=== PATIENT | female | born 1960 | race American Indian/Alaskan Native ===

== ENCOUNTER 2017-07-27 16:35 | Inpatient (IN) | payer MEDICAID ==
--- NOTE | 2017-07-27 16:42 | History and Physical Report ---
History of Present Illness Chief complaint: I cant breathe, and im swelling up History of present illness: 56 YO Female with Obesity, Systolic CHF, HTN, HLD, Breast Cancer S/P Mastectomy admitted directly to telemetry at the request of Dr. Boyd. Pt was seen and evaluated in tube winder hand's office and found to have CHF Decompensation. Pt sent to [facility] for admission. Pt seen and evaluated upon arrival. Pt states that she has experienced bilateral lower extremity edema, shortness of breath, dypsnea on exertion, orthopnea, PND and decreased exercise toleerance over the past week with worsening symptoms over the past 3 days. Pt denies fever, chills , CP, Palpitations, NVD, Productive cough, BRBPR, Unintentional weight loss, night sweats. Pt denies medication noncompliance, but does not weigh herself daily, or quantify sodium intake. Past History Past Medical History: cancer, heart failure, hypertension, hyperlipidemia Past Surgical History: mastectomy Social history: single. denies: smoking, alcohol abuse, prescription drug abuse Family history: no significant family history (reviewed) Medications and Allergies Allergies Allergy/AdvReac Type Severity Reaction Status Date / Time No Known Allergies Allergy Verified 03/08/15 07:37 Home Medications Medication Instructions Recorded Confirmed Last Taken Type Aspirin [Aspirin BABY CHEW TAB] 81 mg PO QDAY 03/08/15 03/08/15 Unknown History Ferrous Sulfate [Feosol 325 MG tab] 325 mg PO BID 03/08/15 03/08/15 Unknown History Fluticasone [Flonase] 1 spray NS QDAY 03/08/15 03/08/15 Unknown History HYDROcodone/APAP 10-325 [[place] 1 each PO Q6HR PRN 03/08/15 03/08/15 Unknown History 10-325 mg TAB] Potassium Chloride [K-Dur] 20 meq PO QDAY 03/08/15 03/08/15 Unknown History Simvastatin [Zocor TAB] 20 mg PO QHS 03/08/15 03/08/15 Unknown History Carvedilol [Coreg] 3.125 mg PO BID #60 tablet 03/11/15 Unknown Rx Furosemide [Lasix TAB] 20 mg PO QDAY #30 tablet 03/11/15 Unknown Rx Ciprofloxacin HCl [Ciprofloxacin 500 mg PO Q12H #20 tab 11/05/15 Unknown Rx TAB] Sulfamethoxazole/Trimethoprim 1 each PO BID #20 tablet 11/05/15 Unknown Rx [Bactrim DS TAB] Review of Systems Constitutional: no weight loss, no weight gain, no fever, no chills Ears, nose, mouth and throat: no ear pain, no ear discharge, no tinnitis, no decreased hearing, no nose pain, no nasal congestion Breasts: no change in shape, no swelling, no mass Cardiovascular: orthopnea, edema, shortness of breath, dyspnea on exertion, paroxysmal nocturnal dyspnea, leg edema, decreased exercise tolerance, no chest pain Respiratory: no cough, no cough with sputum, no excessive sputum, no hemoptysis Gastrointestinal: no nausea, no vomiting, no diarrhea, no constipation, no change in bowel habits Genitourinary Female: no pelvic pain, no flank pain, no menorrhagia, no dysuria , no urinary frequency, no urgency Rectal: no pain, no incontinence, no bleeding Musculoskeletal: no neck stiffness, no neck pain, no shooting arm pain, no arm numbness/tingling, no low back pain, no shooting leg pain Integumentary: no rash, no pruritis, no redness, no sores, no wounds Neurological: no transient paralysis, no paralysis, no weakness, no parathesias , no numbness, no tingling, no seizures Psychiatric: no anxiety, no memory loss, no change in sleep habits, no sleep disturbances, no insomnia, no hypersomnia Endocrine: no cold intolerance, no heat intolerance, no polyphagia, no excessive thirst, no polydipsia, no polyuria, no nocturia Hematologic/Lymphatic: no easy bruising, no easy bleeding, no lymphadenopathy, no lymphedema Allergic/Immunologic: no urticaria, no allergic rhinitis, no persistent infections, no anaphylaxis, no angioedema Exam - Constitutional General appearance: Present: mild distress - EENT Eyes: Present: PERRL ENT: hearing intact, clear oral mucosa - Neck Neck: Present: supple, normal ROM - Respiratory Respiratory effort: labored Respiratory: bilateral: diminished, rhonchi - Cardiovascular Heart Sounds: Present: S1 & S2. Absent: rub, click - Extremities Extremities: pulses symmetrical, No edema Extremity abnormal: edema Peripheral Pulses: within normal limits - Abdominal General gastrointestinal: Present: soft, non-tender, non-distended, normal bowel sounds Female genitourinary: Present: normal - Integumentary Integumentary: Present: clear, warm, dry - Musculoskeletal Musculoskeletal: generalized weakness - Psychiatric Psychiatric: appropriate mood/affect, intact judgment & insight - Neurologic Neurologic: CNII-XII intact, moves all extremities Assessment and Plan - Patient Problems (1) CHF exacerbation Current Visit: No Status: Acute Plan to address problem: Admit to telemetry, Strict I/O, Afterload reduction, monitor uop q shift, cardiology consulted, low sodium diet, daily weight, BNP, diuresis, supplemental oxygen, further testing as per cardiology team. (2) Acute respiratory failure Current Visit: Yes Status: Acute Qualifiers: Respiratory failure complication: hypoxia Qualified Code(s): J96.01 - Acute respiratory failure with hypoxia Plan to address problem: Supplemental oxygen, nebulizer therapy, Chest X ray, NIPPV as clinically indicated, diuresis, treat CHF, (3) HTN (hypertension) Current Visit: Yes Status: Acute Qualifiers: Hypertension type: essential hypertension Qualified Code(s): I10 - Essential (primary) hypertension Plan to address problem: monitor BP q shift, supportive care, (4) HLD (hyperlipidemia) Current Visit: Yes Status: Acute Qualifiers: Hyperlipidemia type: mixed hyperlipidemia Qualified Code(s): E78.2 - Mixed hyperlipidemia Plan to address problem: low cholesterol diet, increased physical activity, lipid panel, statin therapy (5) Obesity (BMI 35.0-39.9 without comorbidity) Current Visit: Yes Status: Acute Plan to address problem: Balanced diet, increased physical activity at discharge (6) DVT prophylaxis Current Visit: Yes Status: Acute
[2017-07-27] MEDS ORDERED: SODIUM CHLORIDE FLUSH SYRINGE 10 ML IV PRN (16:44)
[2017-07-27] MEDS ORDERED: PROVENTIL IH PRN (16:44)
[2017-07-27 20:56] LABS: Free T4 (Free Thyroxine) 1.28 ng/dL (0.76-1.46)
[2017-07-27] MEDS: COREG PO SCH (22:00)
[2017-07-27] MEDS ORDERED: NON-FORMULARY (Simvastatin 20 MG) PO SCH (22:00)
[2017-07-27] MEDS: HYDROMET PO PRN (22:11)
[2017-07-27] MEDS: PRAVACHOL PO SCH (22:11)
[2017-07-27] MEDS: FEOSOL PO SCH (22:11)
[2017-07-27] MEDS: LASIX IV SCH (22:12)
[2017-07-27] MEDS: SODIUM CHLORIDE FLUSH SYRINGE 10 ML IV SCH (22:17)
--- NOTE | 2017-07-27 23:26 | XRay Report ---
FINAL REPORT PROCEDURE: XR CHEST 1V AP TECHNIQUE: Chest radiograph anteroposterior view. CPT 92286 HISTORY: dypsnea COMPARISON: No prior studies are available for comparison. FINDINGS: Limited study due to suboptimal positioning. Patient is rotated to the left. There is moderate degree elevation of left hemidiaphragm. Moderate cardiomegaly is identified. No obvious pulmonary infiltrates are identified. Pleural spaces are clear. A right-sided catheter is noted terminating at the level of superior vena cava. IMPRESSION: Moderate degree cardiomegaly. No obvious acute pulmonary process..
[2017-07-28] MEDS: ZOFRAN IV PRN (01:09)
[2017-07-28] MEDS: LASIX IV SCH ×2 (05:38→18:42)
[2017-07-28 07:00] LABS: Basophils % (Auto) 0.8 % (0.0-1.8); Eosinophils # (Auto) 0.1 K/mm3 (0.0-0.4); Hemoglobin 13.3 gm/dl (10.1-14.3); Lymphocytes # (Auto) 0.7 K/mm3 (1.2-5.4); Lymphocytes % (Auto) 20.9 % (13.4-35.0); Mean Corpuscular HGB Conc 32 % (30-34); Mean Corpuscular Hemoglobin 33 pg (28-32); Mean Corpuscular Volume 105 fl (79-97); Monocytes # (Auto) 0.4 K/mm3 (0.0-0.8); Monocytes % (Auto) 11.4 % (0.0-7.3); Platelet Count 185 K/mm3 (140-440); Red Cell Distribution Width 14.6 % (13.2-15.2)
[2017-07-28 07:07] LABS: INR 1.55 (0.87-1.13)
[2017-07-28 07:36] LABS: Alanine Aminotransferase 11 units/L (7-56); Albumin 3.5 g/dL (3.9-5); BUN/Creatinine Ratio 16; Blood Urea Nitrogen 13 mg/dL (7-17); Calcium 8.1 mg/dL (8.4-10.2); Hemolysis Index 5
[2017-07-28] MEDS: TYLENOL PO PRN (07:51)
[2017-07-28] MEDS: BABY ASPIRIN PO SCH (10:09)
[2017-07-28] MEDS: FEOSOL PO SCH ×2 (10:09→21:58)
[2017-07-28] MEDS: COREG PO SCH ×2 (10:09→21:59)
[2017-07-28] MEDS: SODIUM CHLORIDE FLUSH SYRINGE 10 ML IV SCH ×2 (10:13→21:59)
[2017-07-28] MEDS: FLONASE NS SCH (10:13)
[2017-07-28] MEDS: K-DUR PO SCH (10:14)
--- NOTE | 2017-07-28 11:40 | Consultation ---
History of Present Illness Consult date: 07/28/17 Requesting physician: RIO ATKINS Consult reason: congestive heart failure History of present illness: The pt is a 56 YO female with a past medical history significant for metastatic breast CA (followed by Dr. العراقي) s/p left mastectomy, NICMP, heart failure , PE (diagnosed 06/2017), anticoagulated with Xarelto, cardiac arrest with torsades de pointes. She is followed in our office by Dr. Boyd. She presented to our office yesterday with c/o increasing SOB, BLE swelling and coughing for the past several weeks. She was found to be in decompensated HF and was referred to [facility] for direct admission for further eval/management. On evaluation, she still c/o SOB and BLE swelling. She also c/o decreased appetite and early satiety. She denies any chest pain, palpitations, n/v, diaphoresis, dizziness or syncope. LHC done 06/2011 showed normal coronaries, EF 20%. Echo done 06/26/2017 showed EF 20-25%, mild MR, mild-mod TR, LA mod dilated. Past History Past Medical History: cancer, heart failure, hypertension, hyperlipidemia Past Surgical History: mastectomy Social history: single. denies: smoking, alcohol abuse, prescription drug abuse Family history: no significant family history (reviewed) Medications and Allergies Allergies Allergy/AdvReac Type Severity Reaction Status Date / Time No Known Allergies Allergy Verified 03/08/15 07:37 Home Medications Medication Instructions Recorded Confirmed Last Taken Type Aspirin [Aspirin BABY CHEW TAB] 81 mg PO QDAY 03/08/15 03/08/15 Unknown History Ferrous Sulfate [Feosol 325 MG tab] 325 mg PO BID 03/08/15 03/08/15 Unknown History Fluticasone [Flonase] 1 spray NS QDAY 03/08/15 03/08/15 Unknown History HYDROcodone/APAP 10-325 [[place] 1 each PO Q6HR PRN 03/08/15 03/08/15 Unknown History 10-325 mg TAB] Potassium Chloride [K-Dur] 20 meq PO QDAY 03/08/15 03/08/15 Unknown History Simvastatin [Zocor TAB] 20 mg PO QHS 03/08/15 03/08/15 Unknown History Carvedilol [Coreg] 3.125 mg PO BID #60 tablet 03/11/15 Unknown Rx Furosemide [Lasix TAB] 20 mg PO QDAY #30 tablet 03/11/15 Unknown Rx Ciprofloxacin HCl [Ciprofloxacin 500 mg PO Q12H #20 tab 11/05/15 Unknown Rx TAB] Sulfamethoxazole/Trimethoprim 1 each PO BID #20 tablet 11/05/15 Unknown Rx [Bactrim DS TAB] Active Meds: Active Medications Acetaminophen (Tylenol) 650 mg PO Q4H PRN PRN Reason: Pain MILD(1-3)/Fever >100.5/VILLARREAL Last Admin: 07/28/17 07:51 Dose: 650 mg Acetaminophen/Hydrocodone Bitart ([place] 10/325) 1 each PO Q6HR PRN PRN Reason: Pain Albuterol (Proventil) 2.5 mg IH Q4HRT PRN PRN Reason: Shortness Of Breath Aspirin (Baby Aspirin) 81 mg PO QDAY [facility] Last Admin: 07/28/17 10:09 Dose: 81 mg Carvedilol (Coreg) 3.125 mg PO BID [facility] Last Admin: 07/28/17 10:09 Dose: 3.125 mg Ferrous Sulfate (Feosol) 325 mg PO BID [facility] Last Admin: 07/28/17 10:09 Dose: 325 mg Fluticasone Propionate (Flonase) 50 mcg NS QDAY [facility] Last Admin: 07/28/17 10:13 Dose: 50 mcg Furosemide (Lasix) 20 mg IV BID@0600,1800 [facility] Last Admin: 07/28/17 05:38 Dose: 20 mg Hydrocodone Bit/Homatropine Methylb (Hydromet) 10 ml PO Q6H PRN PRN Reason: Cough Last Admin: 07/27/17 22:11 Dose: 10 ml Ondansetron HCl (Zofran) 4 mg IV Q8H PRN PRN Reason: Nausea And Vomiting Last Admin: 07/28/17 01:09 Dose: 4 mg Potassium Chloride (K-Dur) 20 meq PO QDAY [facility] Last Admin: 07/28/17 10:14 Dose: 20 meq Pravastatin Sodium (Pravachol) 40 mg PO QHS [facility] Last Admin: 07/27/17 22:11 Dose: 40 mg Sodium Chloride (Sodium Chloride Flush Syringe 10 Ml) 10 ml IV BID [facility] Last Admin: 07/28/17 10:13 Dose: 10 ml Sodium Chloride (Sodium Chloride Flush Syringe 10 Ml) 10 ml IV PRN PRN PRN Reason: LINE FLUSH Review of Systems Constitutional: no fever, no chills, no sweats Ears, nose, mouth and throat: no ear pain, no nose pain, no sinus pressure, no sinus pain Cardiovascular: orthopnea, edema, shortness of breath, dyspnea on exertion, paroxysmal nocturnal dyspnea, leg edema, decreased exercise tolerance, no chest pain, no palpitations, no rapid/irregular heart beat, no syncope, no lightheadedness Respiratory: cough, shortness of breath, dyspnea on exertion, no cough with sputum, no congestion, no wheezing, no pain on inspiration Gastrointestinal: early satiety, no abdominal pain, no nausea, no vomiting, no diarrhea, no constipation, no change in bowel habits Genitourinary Female: no pelvic pain, no flank pain, no dysuria, no urinary frequency Musculoskeletal: no neck stiffness, no neck pain, no shooting arm pain, no arm numbness/tingling, no low back pain, no shooting leg pain, no leg numbness/ tingling Integumentary: no rash, no pruritis, no redness, no sores, no wounds Neurological: no head injury, no paralysis, no weakness, no parathesias, no numbness, no tingling, no seizures, no syncope Psychiatric: no anxiety Endocrine: no cold intolerance, no heat intolerance Hematologic/Lymphatic: no easy bruising, no easy bleeding, no lymphadenopathy Allergic/Immunologic: no urticaria, no wheezing, no persistent infections Physical Examination Vital Signs Temp Pulse Resp BP Pulse Ox 99.2 F 112 H 20 103/78 98 07/27/17 20:25 07/27/17 20:25 07/27/17 20:25 07/27/17 20:25 07/27/17 20:25 General appearance: no acute distress HEENT: Positive: PERRL, Normocephaly, Mucus Membranes Moist Neck: Positive: neck supple, trachea midline Cardiac: Positive: Reg Rate and Rhythm, S1/S2, Systolic Murmur Lungs: Positive: Decreased Breath Sounds Neuro: Positive: Grossly Intact, Cranial Nerve 2-12 Intact Abdomen: Positive: Soft. Negative: Tender Skin: Positive: Clear. Negative: Rash, Wound Musculoskeletal: No Pain, Normal Range of Motion Extremities: Present: +1 Edema (BLE) Results 07/28/17 06:30 07/28/17 06:30 Cardiac Enzymes 07/28/17 Range/Units 06:30 AST 12 (5-40) units/L Coagulation 07/28/17 Range/Units 06:30 PT 19.5 H (12.2-14.9) Sec. INR 1.55 H (0.87-1.13) CBC 07/28/17 Range/Units 06:30 WBC 3.4 L (4.5-11.0) K/mm3 RBC 4.00 (3.65-5.03) M/mm3 Hgb 13.3 (10.1-14.3) gm/dl Hct 42.0 (30.3-42.9) % Plt Count 185 (140-440) K/mm3 Lymph # 0.7 L (1.2-5.4) K/mm3 [place] # 0.4 (0.0-0.8) K/mm3 Eos # 0.1 (0.0-0.4) K/mm3 Baso # 0.0 (0.0-0.1) K/mm3 Comprehensive Metabolic Panel 07/28/17 Range/Units 06:30 Sodium 142 (137-145) mmol/L Potassium 4.2 (3.6-5.0) mmol/L Chloride 101.1 (98-107) mmol/L Carbon Dioxide 28 (22-30) mmol/L BUN 13 (7-17) mg/dL Creatinine 0.8 (0.7-1.2) mg/dL Glucose 129 H (65-100) mg/dL Calcium 8.1 L (8.4-10.2) mg/dL AST 12 (5-40) units/L ALT 11 (7-56) units/L Alkaline Phosphatase 57 (35-129) units/L Total Protein 6.9 (6.3-8.2) g/dL Albumin 3.5 L (3.9-5) g/dL - Imaging and Cardiology Echo: report reviewed (06/26/2017 showed EF 20-25%, mild MR, mild-mod TR, LA mod dilated) Cardiac cath: report reviewed (06/2011 showed normal coronaries, EF 20%) EKG: pending Assessment and Plan Assessment: Acute on chronic systolic heart failure NICMP - EF 20-25% Metastatic breast CA (followed by Dr. العراقي) s/p left mastectomy NICMP H/o PE (diagnosed 06/2017), anticoagulated with Xarelto H/o cardiac arrest with torsades de pointes Plan: Obtain ECG. Increase IV lasix to 40mg BID. Resume home Xarelto, 20mg PO daily. Agree with all other present cardiac regimen. Home lisinopril held in setting of borderline hypotension. Pt chronically declines AICD. Assessment and plan reviewed with pt at bedside. The patient has been seen in conjunction with Dr. DISHA Allen who agrees with the assessment and plan of care.
--- NOTE | 2017-07-28 16:31 | Progress Note ---
Assessment and Plan Assessment and plan: 56 YO Female with Obesity, Systolic CHF, HTN, HLD, Breast Cancer S/P Mastectomy admitted directly to telemetry at the request of Dr. Boyd. Pt was seen and evaluated in inspector and clipper's office and found to have CHF Decompensation. Pt sent to [facility] for admission. Pt seen and evaluated upon arrival. Pt states that she has experienced bilateral lower extremity edema, shortness of breath, dypsnea on exertion, orthopnea, PND and decreased exercise toleerance over the past week with worsening symptoms over the past 3 days. Pt denies fever, chills , CP, Palpitations, NVD, Productive cough, BRBPR, Unintentional weight loss, night sweats. Pt denies medication noncompliance, but does not weigh herself daily, or quantify sodium intake. (1) Acute systolic CHF exacerbation * Continue Strict I/O, Afterload reduction, monitor uop q shift, cardiology consulted, low sodium diet, daily weight, BNP, supplemental oxygen, further testing as per cardiology team. * Lasix IV 40mg BID (2) NICMP EF 20-25%/Cardiac arrest with torsade de pointes * CARDIOLOGY FOLLOWING, PATIENT HAS CHRONICALLY DECLINED AICD (3)Acute respiratory failure * Supplemental oxygen, nebulizer therapy, Chest X ray, NIPPV as clinically indicated, diuresis, treat CHF, (4) HTN (hypertension) * monitor BP q shift, supportive care, (5) HX of metastatic Breast CA s.p Left mastectomy * follows with Dr العراقي (6) HLD (hyperlipidemia) * low cholesterol diet, increased physical activity, lipid panel, statin therapy (5) Obesity (BMI 35.0-39.9 without comorbidity) * Balanced diet, increased physical activity at discharge (6) DVT prophylaxis CHRONICALLY ON XERALTO DUE TO HX OF PE P History Interval history: Patient seen and examine today, showing some improvement, still with orthopnea. Hospitalist Physical - Physical exam Narrative exam: VITAL SIGNS: Reviewed. GENERAL: The patient appeared well nourished and normally developed. Vital signs as documented. HEAD: No signs of head trauma. EYES: Pupils are equal. Extraocular motions intact. EARS: Hearing grossly intact. MOUTH: Oropharynx is normal. NECK: No adenopathy, no JVD. CHEST: Chest with clear breath sounds bilaterally. No wheezes, rales, or rhonchi. CARDIAC: Regular rate and rhythm. S1 and S2, without murmurs, gallops, or rubs. VASCULAR: +1 Edema. Peripheral pulses normal and equal in all extremities. ABDOMEN: Soft, without detectable tenderness. No sign of distention. No rebound or guarding, and no masses palpated. Bowel Sounds normal. MUSCULOSKELETAL: Good range of motion of all major joints. Extremities without clubbing, cyanosis.+1 edema. NEUROLOGIC EXAM: Alert and oriented x 3. No focal sensory or strength deficits. Speech normal. Follows commands. PSYCHIATRIC: Mood normal. SKIN: left chest wall deformity from mastectomy - Constitutional Vitals: Temp Pulse Resp BP Pulse Ox 98.2 F 106 H 18 90/61 96 07/28/17 04:53 07/28/17 10:00 07/28/17 10:00 07/28/17 04:53 07/28/17 04:53 General appearance: Present: no acute distress Results - Labs CBC & Chem 7: 07/28/17 06:30 07/28/17 06:30 Labs: Laboratory Last Values WBC 3.4 K/mm3 (4.5-11.0) L 07/28/17 06:30 RBC 4.00 M/mm3 (3.65-5.03) 07/28/17 06:30 Hgb 13.3 gm/dl (10.1-14.3) 07/28/17 06:30 Hct 42.0 % (30.3-42.9) 07/28/17 06:30 MCV 105 fl (79-97) H 07/28/17 06:30 MCH 33 pg (28-32) H 07/28/17 06:30 MCHC 32 % (30-34) 07/28/17 06:30 RDW 14.6 % (13.2-15.2) 07/28/17 06:30 Plt Count 185 K/mm3 (140-440) 07/28/17 06:30 Lymph % (Auto) 20.9 % (13.4-35.0) 07/28/17 06:30 [place] % (Auto) 11.4 % (0.0-7.3) H 07/28/17 06:30 Eos % (Auto) 3.0 % (0.0-4.3) 07/28/17 06:30 Baso % (Auto) 0.8 % (0.0-1.8) 07/28/17 06:30 Lymph # 0.7 K/mm3 (1.2-5.4) L 07/28/17 06:30 [place] # 0.4 K/mm3 (0.0-0.8) 07/28/17 06:30 Eos # 0.1 K/mm3 (0.0-0.4) 07/28/17 06:30 Baso # 0.0 K/mm3 (0.0-0.1) 07/28/17 06:30 Seg Neutrophils % 63.9 % (40.0-70.0) 07/28/17 06:30 Seg Neutrophils # 2.2 K/mm3 (1.8-7.7) 07/28/17 06:30 PT 19.5 Sec. (12.2-14.9) H 07/28/17 06:30 INR 1.55 (0.87-1.13) H 07/28/17 06:30 Sodium 142 mmol/L (137-145) 07/28/17 06:30 Potassium 4.2 mmol/L (3.6-5.0) 07/28/17 06:30 Chloride 101.1 mmol/L (98-107) 07/28/17 06:30 Carbon Dioxide 28 mmol/L (22-30) 07/28/17 06:30 Anion Gap 17 mmol/L 07/28/17 06:30 BUN 13 mg/dL (7-17) 07/28/17 06:30 Creatinine 0.8 mg/dL (0.7-1.2) 07/28/17 06:30 Estimated GFR > 60 ml/min 07/28/17 06:30 BUN/Creatinine Ratio 16 % 07/28/17 06:30 Glucose 129 mg/dL (65-100) H 07/28/17 06:30 Calcium 8.1 mg/dL (8.4-10.2) L 07/28/17 06:30 Total Bilirubin 0.70 mg/dL (0.1-1.2) 07/28/17 06:30 AST 12 units/L (5-40) 07/28/17 06:30 ALT 11 units/L (7-56) 07/28/17 06:30 Alkaline Phosphatase 57 units/L (35-129) 04/24/18 06:30 NT-Pro-B Natriuret Pep 3140 pg/mL (0-900) H 07/28/17 06:30 Total Protein 6.9 g/dL (6.3-8.2) 07/28/17 06:30 Albumin 3.5 g/dL (3.9-5) L 07/28/17 06:30 Albumin/Globulin Ratio 1.0 % 07/28/17 06:30 TSH 2.240 mlU/mL (0.270-4.200) 07/27/17 19:42 Free T4 1.28 ng/dL (0.76-1.46) 07/27/17 19:42
[2017-07-28] MEDS: PRAVACHOL PO SCH (21:58)
[2017-07-28] MEDS: HYDROMET PO PRN (21:59)
[2017-07-28] MEDS ORDERED: MIRALAX 3350 PO PRN (23:29)
[2017-07-29] MEDS: PROTONIX PO SCH ×2 (00:04→10:49)
[2017-07-29] MEDS: LASIX IV SCH ×2 (06:26→17:22)
[2017-07-29 08:09] LABS: BUN/Creatinine Ratio 19; Blood Urea Nitrogen 17 mg/dL (7-17); Hemolysis Index 33
[2017-07-29] MEDS: COREG PO SCH ×2 (10:48→21:48)
[2017-07-29] MEDS: FEOSOL PO SCH ×2 (10:48→21:48)
[2017-07-29] MEDS: BABY ASPIRIN PO SCH (10:48)
[2017-07-29] MEDS: XARELTO PO SCH (10:49)
[2017-07-29] MEDS: NORCO 10/325 PO PRN ×2 (10:49→17:22)
[2017-07-29] MEDS: ZOFRAN IV PRN ×2 (10:49→17:22)
[2017-07-29] MEDS: FLONASE NS SCH (10:49)
--- NOTE | 2017-07-29 12:47 | Progress Note ---
Assessment and Plan Assessment: Acute on chronic systolic heart failure NICMP - EF 20-25% Metastatic breast CA (followed by Dr. العراقي) s/p left mastectomy NICMP H/o PE (diagnosed 06/2017), anticoagulated with Xarelto H/o cardiac arrest with torsades de pointes NSVT Plan: ECG reviewed - ST, HR 109 with LVH and repolarization abnormalities, no acute ischemic changes. Pt noted to have frequent bouts of NSVT overnight. Obtain serum Mg and cont coreg. Cont present cardiac regimen. Home lisinopril held in setting of borderline hypotension. Pt has chronically declines AICD. LifeVest/AICD again recommended to pt in setting of NICMP and frequent NSVT. Pt states she will consider LifeVest/AICD. The patient has been seen in conjunction with Dr. DISHA Allen who agrees with the assessment and plan of care. Subjective Date of service: 07/29/17 Principal diagnosis: HF Interval history: pt resting in bed, c/o some epigastric pain and nausea. SOB mildly improved. Tele reviewed with several bouts of NSVT noted overnight - pt asymptomatic. Objective Last Vital Signs Temp 98.9 F 07/29/17 11:01 Pulse 112 H 07/29/17 11:01 Resp 20 07/29/17 11:01 BP 121/83 07/29/17 11:01 Pulse Ox 97 07/29/17 11:01 - Physical Examination HEENT: Positive: PERRL, Normocephaly, Mucus Membranes Moist Neck: Positive: neck supple, trachea midline Cardiac: Positive: Reg Rate and Rhythm, S1/S2 Lungs: Positive: Decreased Breath Sounds Neuro: Positive: Grossly Intact, Cranial Nerve 2-12 Intact Abdomen: Positive: Soft. Negative: Tender Skin: Positive: Clear. Negative: Rash, Wound Musculoskeletal: No Pain, Normal Range of Motion Extremities: Present: +1 Edema (BLE) - Labs and Meds Comprehensive Metabolic Panel 07/29/17 Range/Units 07:29 Sodium 139 (137-145) mmol/L Potassium 4.5 (3.6-5.0) mmol/L Chloride 97.4 L (98-107) mmol/L Carbon Dioxide 31 H (22-30) mmol/L BUN 17 (7-17) mg/dL Creatinine 0.9 (0.7-1.2) mg/dL Glucose 146 H (65-100) mg/dL Calcium 8.0 L (8.4-10.2) mg/dL - Imaging and Cardiology EKG: pending Echo: report reviewed (06/26/2017 showed EF 20-25%, mild MR, mild-mod TR, LA mod dilated) Cardiac cath: report reviewed (06/2011 showed normal coronaries, EF 20%) - Telemetry EKG Rhythm: Sinus Rhythm
--- NOTE | 2017-07-29 14:47 | Progress Note ---
Assessment and Plan Assessment and plan: 56 YO Female with Obesity, Systolic CHF, HTN, HLD, Breast Cancer S/P Mastectomy admitted directly to telemetry at the request of Dr. Boyd. Pt was seen and evaluated in outcomes analyst's office and found to have CHF exacerbation.Pt sent to [facility] for admission. Pt states that she has experienced bilateral lower extremity edema, shortness of breath, dyspnea on exertion, orthopnea, PND and decreased exercise toleerance over the past week with worsening symptoms over the past 3 days prior to admission. Acute on chronic systolic CHF * Continue Strict I/O, Afterload reduction, monitor uop q shift, cardiology following low sodium diet, daily weight, BNP, supplemental oxygen, further testing as per cardiology team. * Lasix IV 40mg BID * Coreg NICMP EF 20-25% * Cardiology following. Patient has repeatedly declined AICD Acute respiratory failure * Supplemental oxygen, nebulizer therapy, Chest X ray, NIPPV as clinically indicated, diuresis, treat CHF, Hypertension * monitor BP q shift, supportive care, History of metastatic Breast CA s.p Left mastectomy * follows with Dr العراقي Hyperlipidemia * low cholesterol diet, increased physical activity, lipid panel, statin therapy Obesity * Balanced diet, increased physical activity at discharge History Interval history: Less shortness of breath, No chest pain Hospitalist Physical - Physical exam Narrative exam: General:Not in acute distress, lying in bed,obese HEENT:Normocephalic, atraumatic Lungs:Bilateral basal crackles, no wheeze Heart:S1 and S2 regular, no murmurs, rubs or gallop Abd: soft, non tender, non distended, normal bowel sounds Ext:no edema, no clubbing or cyanosis Neuro:Awake,alert,oriented x 3, moves all extremities, Psych:normal mood - Constitutional Vitals: Temp Pulse Resp BP Pulse Ox 98.9 F 112 H 20 121/83 97 07/29/17 11:01 07/29/17 11:01 07/29/17 11:01 07/29/17 11:01 07/29/17 11:01 General appearance: Present: no acute distress Results - Labs CBC & Chem 7: 07/28/17 06:30 07/29/17 07:29 Labs: Laboratory Last Values WBC 3.4 K/mm3 (4.5-11.0) L 07/28/17 06:30 RBC 4.00 M/mm3 (3.65-5.03) 07/28/17 06:30 Hgb 13.3 gm/dl (10.1-14.3) 07/28/17 06:30 Hct 42.0 % (30.3-42.9) 07/28/17 06:30 MCV 105 fl (79-97) H 07/28/17 06:30 MCH 33 pg (28-32) H 07/28/17 06:30 MCHC 32 % (30-34) 07/28/17 06:30 RDW 14.6 % (13.2-15.2) 07/28/17 06:30 Plt Count 185 K/mm3 (140-440) 07/28/17 06:30 Lymph % (Auto) 20.9 % (13.4-35.0) 07/28/17 06:30 [place] % (Auto) 11.4 % (0.0-7.3) H 07/28/17 06:30 Eos % (Auto) 3.0 % (0.0-4.3) 07/28/17 06:30 Baso % (Auto) 0.8 % (0.0-1.8) 07/28/17 06:30 Lymph # 0.7 K/mm3 (1.2-5.4) L 07/28/17 06:30 [place] # 0.4 K/mm3 (0.0-0.8) 07/28/17 06:30 Eos # 0.1 K/mm3 (0.0-0.4) 07/28/17 06:30 Baso # 0.0 K/mm3 (0.0-0.1) 07/28/17 06:30 Seg Neutrophils % 63.9 % (40.0-70.0) 07/28/17 06:30 Seg Neutrophils # 2.2 K/mm3 (1.8-7.7) 07/28/17 06:30 PT 19.5 Sec. (12.2-14.9) H 07/28/17 06:30 INR 1.55 (0.87-1.13) H 07/28/17 06:30 Sodium 139 mmol/L (137-145) 07/29/17 07:29 Potassium 4.5 mmol/L (3.6-5.0) 07/29/17 07:29 Chloride 97.4 mmol/L (98-107) L 07/29/17 07:29 Carbon Dioxide 31 mmol/L (22-30) H 07/29/17 07:29 Anion Gap 15 mmol/L 07/29/17 07:29 BUN 17 mg/dL (7-17) 07/29/17 07:29 Creatinine 0.9 mg/dL (0.7-1.2) 07/29/17 07:29 Estimated GFR > 60 ml/min 07/29/17 07:29 BUN/Creatinine Ratio 19 % 07/29/17 07:29 Glucose 146 mg/dL (65-100) H 07/29/17 07:29 Calcium 8.0 mg/dL (8.4-10.2) L 07/29/17 07: Magnesium 1.40 mg/dL (1.7-2.3) L 07/29/17 07:29 Total Bilirubin 0.70 mg/dL (0.1-1.2) 07/28/17 06:30 AST 12 units/L (5-40) 07/28/17 06:30 ALT 11 units/L (7-56) 07/28/17 06:30 Alkaline Phosphatase 57 units/L (35-129) 07/28/17 06:30 NT-Pro-B Natriuret Pep 3140 pg/mL (0-900) H 07/28/17 06:30 Total Protein 6.9 g/dL (6.3-8.2) 07/28/17 06:30 Albumin 3.5 g/dL (3.9-5) L 07/28/17 06:30 Albumin/Globulin Ratio 1.0 % 07/28/17 06:30 TSH 2.240 mlU/mL (0.270-4.200) 07/27/17 19:42 Free T4 1.28 ng/dL (0.76-1.46) 07/27/17 19:42
[2017-07-29] MEDS ORDERED: POTASSIUM CHLORIDE ONE (17:00)
[2017-07-29] MEDS: K-DUR PO SCH (18:23)
[2017-07-29] MEDS ORDERED: POTASSIUM CHLORIDE FEEDTUBE ONE (18:26)
[2017-07-29] MEDS: PRAVACHOL PO SCH (21:48)
[2017-07-29] MEDS: SODIUM CHLORIDE FLUSH SYRINGE 10 ML IV SCH ×2 (21:49)
[2017-07-30] MEDS ORDERED: MAGNESIUM SULFATE 3 GM in NACL 0.9% 100 ML IV ONE (06:00)
[2017-07-30] MEDS: LASIX IV SCH ×2 (06:47→18:04)
[2017-07-30] MEDS: HYDROMET PO PRN ×2 (09:19→21:33)
[2017-07-30] MEDS: FLONASE NS SCH (09:21)
[2017-07-30] MEDS: PROTONIX PO SCH (09:22)
[2017-07-30] MEDS: XARELTO PO SCH (09:22)
[2017-07-30] MEDS: BABY ASPIRIN PO SCH (09:22)
[2017-07-30] MEDS: K-DUR PO SCH (09:22)
[2017-07-30] MEDS: FEOSOL PO SCH ×2 (09:23→21:30)
[2017-07-30] MEDS: COREG PO SCH ×2 (09:23→21:30)
[2017-07-30] MEDS: SODIUM CHLORIDE FLUSH SYRINGE 10 ML IV SCH ×2 (10:00→21:31)
[2017-07-30] MEDS: ZOFRAN IV PRN ×2 (11:06→23:38)
--- NOTE | 2017-07-30 13:28 | Progress Note ---
Assessment and Plan Assessment: Acute on chronic systolic heart failure NICMP - EF 20-25% Metastatic breast CA (followed by Dr. العراقي) s/p left mastectomy NICMP H/o PE (diagnosed 06/2017), anticoagulated with Xarelto H/o cardiac arrest with torsades de pointes NSVT Hypomag Plan: Cont present cardiac regimen. Home lisinopril held in setting of borderline hypotension. Replete Mg and repeat BMP and Mg in AM. Pt has chronically declines AICD. LifeVest/AICD again recommended to pt in setting of NICMP and frequent NSVT. Pt states she will consider LifeVest/AICD. She wishes to discuss this with her son. The patient has been seen in conjunction with Dr. Belinda Allen who agrees with the assessment and plan of care. Subjective Date of service: 07/30/17 Principal diagnosis: HF Interval history: pt resting in bed, denies any current complaints. SOB and BLE edema improving. Tele reviewed with no NSVT noted overnight. Objective Last Vital Signs Temp 98.3 F 07/30/17 11:46 Pulse 92 H 07/30/17 11:46 Resp 18 07/30/17 11:46 BP 105/77 07/30/17 11:46 Pulse Ox 97 07/30/17 11:46 - Physical Examination HEENT: Positive: PERRL, Normocephaly, Mucus Membranes Moist Neck: Positive: neck supple, trachea midline Cardiac: Positive: Reg Rate and Rhythm, S1/S2 Lungs: Positive: Decreased Breath Sounds Neuro: Positive: Grossly Intact, Cranial Nerve 2-12 Intact Abdomen: Positive: Soft. Negative: Tender Skin: Positive: Clear. Negative: Rash, Wound Musculoskeletal: No Pain, Normal Range of Motion Extremities: Present: +1 Edema (BLE) - Imaging and Cardiology EKG: report reviewed, image reviewed Echo: report reviewed (06/26/2017 showed EF 20-25%, mild MR, mild-mod TR, LA mod dilated) Cardiac cath: report reviewed (06/2011 showed normal coronaries, EF 20%)
[2017-07-30] MEDS: NORCO 10/325 PO PRN ×2 (14:48→21:33)
[2017-07-30] MEDS: PRAVACHOL PO SCH (21:30)
--- NOTE | 2017-07-30 22:45 | Progress Note ---
Assessment and Plan Assessment and plan: 56 YO Female with Obesity, Systolic CHF, HTN, HLD, Breast Cancer S/P Mastectomy admitted directly to telemetry at the request of Dr. Boyd. Pt was seen and evaluated in laborer shaft sinking's office and found to have CHF exacerbation.Pt sent to [facility] for admission. Pt states that she has experienced bilateral lower extremity edema, shortness of breath, dyspnea on exertion, orthopnea, PND and decreased exercise toleerance over the past week with worsening symptoms over the past 3 days prior to admission. Acute on chronic systolic CHF Continue Strict I/O, Afterload reduction, monitor uop q shift, cardiology following low sodium diet, daily weight, BNP, supplemental oxygen, further testing as per cardiology team. Lasix IV 40mg BID Coreg NICM with EF 20-25% Cardiology following. Patient has repeatedly declined AICD Acute respiratory failure Supplemental oxygen, nebulizer therapy, Chest X ray, NIPPV as clinically indicated, diuresis, treat CHF, Hypertension monitor BP q shift, supportive care, History of metastatic breast cancer s/p left mastectomy follows with Dr العراقي Hyperlipidemia. Low cholesterol diet, increased physical activity, lipid panel, statin therapy DVT prophylaxis. On Xarelto Full code status History Interval history: Less shortness of breath, No chest pain Hospitalist Physical - Physical exam Narrative exam: General:Not in acute distress, lying in bed,obese HEENT:Normocephalic, atraumatic Lungs:Bilateral basal crackles, no wheeze Heart:S1 and S2 regular, no murmurs, rubs or gallop Abd: soft, non tender, non distended, normal bowel sounds Ext:no edema, no clubbing or cyanosis Neuro:Awake,alert,oriented x 3, moves all extremities, Psych:normal mood - Constitutional Vitals: Temp Pulse Resp BP Pulse Ox 98.0 F 95 H 20 112/58 94 07/30/17 19:36 07/30/17 21:30 07/30/17 20:43 07/30/17 19:36 07/30/17 19:36 General appearance: Present: no acute distress, obese Results - Labs CBC & Chem 7: 07/28/17 06:30 07/29/17 07:29 Labs: Laboratory Last Values WBC 3.4 K/mm3 (4.5-11.0) L 07/28/17 06:30 RBC 4.00 M/mm3 (3.65-5.03) 07/28/17 06:30 Hgb 13.3 gm/dl (10.1-14.3) 07/28/17 06:30 Hct 42.0 % (30.3-42.9) 07/28/17 06:30 MCV 105 fl (79-97) H 07/28/17 06:30 MCH 33 pg (28-32) H 07/28/17 06:30 MCHC 32 % (30-34) 07/28/17 06:30 RDW 14.6 % (13.2-15.2) 07/28/17 06:30 Plt Count 185 K/mm3 (140-440) 07/28/17 06:30 Lymph % (Auto) 20.9 % (13.4-35.0) 07/28/17 06:30 [place] % (Auto) 11.4 % (0.0-7.3) H 07/28/17 06:30 Eos % (Auto) 3.0 % (0.0-4.3) 07/28/17 06:30 Baso % (Auto) 0.8 % (0.0-1.8) 07/28/17 06:30 Lymph # 0.7 K/mm3 (1.2-5.4) L 07/28/17 06:30 [place] # 0.4 K/mm3 (0.0-0.8) 07/28/17 06:30 Eos # 0.1 K/mm3 (0.0-0.4) 07/28/17 06:30 Baso # 0.0 K/mm3 (0.0-0.1) 07/28/17 06:30 Seg Neutrophils % 63.9 % (40.0-70.0) 07/28/17 06:30 Seg Neutrophils # 2.2 K/mm3 (1.8-7.7) 07/28/17 06:30 PT 19.5 Sec. (12.2-14.9) H 07/28/17 06:30 INR 1.55 (0.87-1.13) H 07/28/17 06:30 Sodium 139 mmol/L (137-145) 07/29/17 07:29 Potassium 4.5 mmol/L (3.6-5.0) 07/29/17 07:29 Chloride 97.4 mmol/L (98-107) L 07/29/17 07:29 Carbon Dioxide 31 mmol/L (22-30) H 07/29/17 07:29 Anion Gap 15 mmol/L 07/29/17 07:29 BUN 17 mg/dL (7-17) 07/29/17 07:29 Creatinine 0.9 mg/dL (0.7-1.2) 07/29/17 07:29 Estimated GFR > 60 ml/min 07/29/17 07:29 BUN/Creatinine Ratio 19 % 07/29/17 07:29 Glucose 146 mg/dL (65-100) H 07/29/17 07: Calcium 8.0 mg/dL (8.4-10.2) L 07/29/17 07: Magnesium 1.40 mg/dL (1.7-2.3) L 07/29/17 07:29 Total Bilirubin 0.70 mg/dL (0.1-1.2) 07/28/17 06:30 AST 12 units/L (5-40) 07/28/17 06:30 ALT 11 units/L (7-56) 07/28/17 06:30 Alkaline Phosphatase 57 units/L (35-129) 07/28/17 06:30 NT-Pro-B Natriuret Pep 3140 pg/mL (0-900) H 07/28/17 06:30 Total Protein 6.9 g/dL (6.3-8.2) 07/28/17 06:30 Albumin 3.5 g/dL (3.9-5) L 07/28/17 06:30 Albumin/Globulin Ratio 1.0 % 07/28/17 06:30 TSH 2.240 mlU/mL (0.270-4.200) 07/27/17 19:42 Free T4 1.28 ng/dL (0.76-1.46) 07/27/17 19:42
[2017-07-31 06:45] LABS: BUN/Creatinine Ratio 27; Blood Urea Nitrogen 19 mg/dL (7-17); Calcium 8.5 mg/dL (8.4-10.2); Hemolysis Index 88
[2017-07-31] MEDS: FLONASE NS SCH (09:32)
[2017-07-31] MEDS: LASIX IV SCH ×2 (09:33→20:05)
[2017-07-31] MEDS: PROTONIX PO SCH (09:36)
[2017-07-31] MEDS: FEOSOL PO SCH ×2 (09:36→22:12)
[2017-07-31] MEDS: XARELTO PO SCH (09:36)
[2017-07-31] MEDS: BABY ASPIRIN PO SCH (09:36)
[2017-07-31] MEDS: COREG PO SCH ×2 (09:37→22:12)
[2017-07-31] MEDS: ZOFRAN IV PRN ×2 (10:21→17:23)
[2017-07-31] MEDS: HYDROMET PO PRN ×2 (10:21→17:31)
[2017-07-31] MEDS: NORCO 10/325 PO PRN ×2 (10:21→22:12)
[2017-07-31] MEDS: SODIUM CHLORIDE FLUSH SYRINGE 10 ML IV SCH ×2 (10:22→22:13)
--- NOTE | 2017-07-31 11:31 | Progress Note ---
Assessment and Plan Assessment: Acute on chronic systolic heart failure NICMP - EF 20-25% Metastatic breast CA (followed by Dr. العراقي) s/p left mastectomy NICMP H/o PE (diagnosed 06/2017), anticoagulated with Xarelto H/o cardiac arrest with torsades de pointes NSVT Hypomag Plan: Cont present cardiac regimen including IV lasix. Home lisinopril on hold in the setting of borderline hypotension. Pt has chronically declines AICD. LifeVest/AICD again recommended to pt in setting of NICMP and frequent NSVT. Pt states she will consider LifeVest/AICD. She wishes to discuss this with her son. The patient has been seen in conjunction with Dr. DISHA Allen who agrees with the assessment and plan of care. Subjective Date of service: 07/31/17 Principal diagnosis: HF Interval history: The patient is resting in bed. Feels better today. Objective Last Vital Signs Temp 97.4 F L 07/31/17 08:16 Pulse 91 H 07/31/17 09:37 Resp 20 07/31/17 10:21 BP 149/87 07/31/17 09:37 Pulse Ox 96 07/31/17 10:32 - Physical Examination General: No Apparent Distress HEENT: Positive: PERRL, Normocephaly, Mucus Membranes Moist Neck: Positive: neck supple, trachea midline Cardiac: Positive: Reg Rate and Rhythm, S1/S2 Lungs: Positive: clear to auscultation Neuro: Positive: Grossly Intact, Cranial Nerve 2-12 Intact Abdomen: Positive: Soft. Negative: Tender Skin: Positive: Clear. Negative: Rash, Wound Musculoskeletal: No Pain, Normal Range of Motion Extremities: Present: +1 Edema (BLE) - Labs and Meds Comprehensive Metabolic Panel 07/31/17 Range/Units 06:01 Sodium 139 (137-145) mmol/L Potassium 5.1 H (3.6-5.0) mmol/L Chloride 97.1 L (98-107) mmol/L Carbon Dioxide 34 H (22-30) mmol/L BUN 19 H (7-17) mg/dL Creatinine 0.7 (0.7-1.2) mg/dL Glucose 139 H (65-100) mg/dL Calcium 8.5 (8.4-10.2) mg/dL - Imaging and Cardiology EKG: report reviewed, image reviewed Echo: report reviewed (06/26/2017 showed EF 20-25%, mild MR, mild-mod TR, LA mod dilated) Cardiac cath: report reviewed (06/2011 showed normal coronaries, EF 20%) - Telemetry EKG Rhythm: Sinus Rhythm
[2017-07-31] MEDS: PRAVACHOL PO SCH (22:12)
--- NOTE | 2017-08-01 00:35 | Progress Note ---
Assessment and Plan Assessment and plan: 56 YO Female with Obesity, Systolic CHF, HTN, HLD, Breast Cancer S/P Mastectomy admitted directly to telemetry at the request of Dr. Boyd. Pt was seen and evaluated in speech writer's office and found to have CHF exacerbation.Pt sent to [facility] for admission. Pt states that she has experienced bilateral lower extremity edema, shortness of breath, dyspnea on exertion, orthopnea, PND and decreased exercise tolerance over the past week with worsening symptoms over the past 3 days prior to admission. Acute on chronic systolic CHF Continue Strict I/O, Afterload reduction, monitor uop q shift, cardiology following low sodium diet, daily weight, BNP, supplemental oxygen, further testing as per cardiology team. Lasix IV 40mg BID Coreg NICM with EF 20-25% Cardiology following. Patient has repeatedly declined AICD Acute respiratory failure Supplemental oxygen, nebulizer therapy, Chest X ray, NIPPV as clinically indicated, diuresis, treat CHF, Hypertension monitor BP q shift, supportive care, History of metastatic breast cancer s/p left mastectomy follows with Dr العراقي Hyperlipidemia. Low cholesterol diet, increased physical activity, lipid panel, statin therapy DVT prophylaxis. On Xarelto Full code status Poss discharge in 1-2 days History Interval history: Less shortness of breath, No chest pain Hospitalist Physical - Physical exam Narrative exam: General:Not in acute distress, lying in bed,obese HEENT:Normocephalic, atraumatic Lungs:Bilateral basal crackles, no wheeze Heart:S1 and S2 regular, no murmurs, rubs or gallop Abd: soft, non tender, non distended, normal bowel sounds Ext:no edema, no clubbing or cyanosis Neuro:Awake,alert,oriented x 3, moves all extremities, Psych:normal mood - Constitutional Vitals: Temp Pulse Resp BP Pulse Ox 97.5 F L 78 20 90/60 100 07/31/17 23:54 07/31/17 23:54 07/31/17 23:54 07/31/17 23:54 07/31/17 23:54 General appearance: Present: no acute distress, obese Results - Labs CBC & Chem 7: 07/28/17 06:30 08/01/17 08:40 Labs: Laboratory Last Values WBC 3.4 K/mm3 (4.5-11.0) L 07/28/17 06:30 RBC 4.00 M/mm3 (3.65-5.03) 07/28/17 06:30 Hgb 13.3 gm/dl (10.1-14.3) 07/28/17 06:30 Hct 42.0 % (30.3-42.9) 07/28/17 06:30 MCV 105 fl (79-97) H 07/28/17 06:30 MCH 33 pg (28-32) H 07/28/17 06:30 MCHC 32 % (30-34) 07/28/17 06:30 RDW 14.6 % (13.2-15.2) 07/28/17 06:30 Plt Count 185 K/mm3 (140-440) 07/28/17 06:30 Lymph % (Auto) 20.9 % (13.4-35.0) 07/28/17 06:30 [place] % (Auto) 11.4 % (0.0-7.3) H 07/28/17 06:30 Eos % (Auto) 3.0 % (0.0-4.3) 07/28/17 06:30 Baso % (Auto) 0.8 % (0.0-1.8) 07/28/17 06:30 Lymph # 0.7 K/mm3 (1.2-5.4) L 07/28/17 06:30 [place] # 0.4 K/mm3 (0.0-0.8) 07/28/17 06:30 Eos # 0.1 K/mm3 (0.0-0.4) 07/28/17 06:30 Baso # 0.0 K/mm3 (0.0-0.1) 07/28/17 06:30 Seg Neutrophils % 63.9 % (40.0-70.0) 07/28/17 06:30 Seg Neutrophils # 2.2 K/mm3 (1.8-7.7) 07/28/17 06:30 PT 19.5 Sec. (12.2-14.9) H 07/28/17 06:30 INR 1.55 (0.87-1.13) H 07/28/17 06:30 Sodium 139 mmol/L (137-145) 07/31/17 06:01 Potassium 5.1 mmol/L (3.6-5.0) H 07/31/17 06:01 Chloride 97.1 mmol/L (98-107) L 07/31/17 06:01 Carbon Dioxide 34 mmol/L (22-30) H 07/31/17 06:01 Anion Gap 13 mmol/L 07/31/17 06:01 BUN 19 mg/dL (7-17) H 07/31/17 06:01 Creatinine 0.7 mg/dL (0.7-1.2) 07/31/17 06:01 Estimated GFR > 60 ml/min 07/31/17 06:01 BUN/Creatinine Ratio 27 % 07/31/17 06:01 Glucose 139 mg/dL (65-100) H 07/31/17 06:01 Calcium 8.5 mg/dL (8.4-10.2) 07/31/17 06:01 Magnesium 1.90 mg/dL (1.7-2.3) 07/31/17 06:01 Total Bilirubin 0.70 mg/dL (0.1-1.2) 07/28/17 06:30 AST 12 units/L (5-40) 07/28/17 06:30 ALT 11 units/L (7-56) 07/28/17 06:30 Alkaline Phosphatase 57 units/L (35-129) 07/28/17 06:30 NT-Pro-B Natriuret Pep 3140 pg/mL (0-900) H 07/28/17 06:30 Total Protein 6.9 g/dL (6.3-8.2) 07/28/17 06:30 Albumin 3.5 g/dL (3.9-5) L 07/28/17 06:30 Albumin/Globulin Ratio 1.0 % 07/28/17 06:30 TSH 2.240 mlU/mL (0.270-4.200) 07/27/17 19:42 Free T4 1.28 ng/dL (0.76-1.46) 07/27/17 19:42
[2017-08-01] MEDS: LASIX IV SCH ×2 (05:03→19:02)
[2017-08-01 09:31] LABS: BUN/Creatinine Ratio 24; Blood Urea Nitrogen 19 mg/dL (7-17); Hemolysis Index 18
[2017-08-01 09:33] VITALS: BP 104/76
[2017-08-01] MEDS: PROTONIX PO SCH (09:47)
[2017-08-01] MEDS: TYLENOL PO PRN (09:47)
[2017-08-01] MEDS: FEOSOL PO SCH (09:47)
[2017-08-01] MEDS: XARELTO PO SCH (09:48)
[2017-08-01] MEDS: SODIUM CHLORIDE FLUSH SYRINGE 10 ML IV SCH (09:49)
[2017-08-01] MEDS: COREG PO SCH (09:49)
[2017-08-01] MEDS: BABY ASPIRIN PO SCH (09:49)
[2017-08-01] MEDS: FLONASE NS SCH (09:50)
--- NOTE | 2017-08-01 10:58 | Progress Note ---
Assessment and Plan 56yo aaf: Assessment: Acute on chronic systolic heart failure NICMP - EF 20-25% Metastatic breast CA (followed by Dr. العراقي) s/p left mastectomy NICMP H/o PE (diagnosed 06/2017), anticoagulated with Xarelto H/o cardiac arrest with torsades de pointes NSVT Plan: Pt still unsure of lifevest. I spent a sig amount discussing again (4th day discussing this). She declines ICD. I do believe that she understands that she is high risk for she understands the risks of not proceeding. She appears to be very close to euvolemia. Wean o2 and consider dc. Home lisinopril on hold in the setting of borderline hypotension. Subjective Principal diagnosis: HF Interval history: feels well, much less sob Objective Vital Signs Temp Pulse Resp BP Pulse Ox 08/01/17 09:36 98 08/01/17 09:05 98.3 F 83 18 104/76 98 08/01/17 04:11 98.5 F 84 20 88/61 97 07/31/17 23:54 97.5 F L 78 20 90/60 100 07/31/17 22:00 96 07/31/17 20:13 20 07/31/17 20:11 88 07/31/17 19:16 98.0 F 96 H 20 136/86 96 07/31/17 17:36 98.2 F 89 18 122/78 99 07/31/17 13:01 98.4 F 88 22 122/88 97 - Physical Examination General: No Apparent Distress HEENT: Positive: PERRL, Normocephaly, Mucus Membranes Moist Neck: Positive: neck supple, trachea midline Neuro: Positive: Grossly Intact, Cranial Nerve 2-12 Intact Abdomen: Positive: Soft. Negative: Tender Skin: Positive: Clear. Negative: Rash, Wound Musculoskeletal: No Pain, Normal Range of Motion Extremities: Present: +1 Edema (BLE) - Labs and Meds Comprehensive Metabolic Panel 08/01/17 Range/Units 08:40 Sodium 138 (137-145) mmol/L Potassium 4.6 (3.6-5.0) mmol/L Chloride 96.6 L (98-107) mmol/L Carbon Dioxide 34 H (22-30) mmol/L BUN 19 H (7-17) mg/dL Creatinine 0.8 (0.7-1.2) mg/dL Glucose 105 H (65-100) mg/dL Calcium 8.0 L (8.4-10.2) mg/dL - Imaging and Cardiology EKG: report reviewed, image reviewed Echo: report reviewed (06/26/2017 showed EF 20-25%, mild MR, mild-mod TR, LA mod dilated) Cardiac cath: report reviewed (06/2011 showed normal coronaries, EF 20%)
--- NOTE | 2017-08-01 15:21 | Progress Note ---
Hospitalist Physical - Constitutional Vitals: Temp Pulse Resp BP Pulse Ox 98.3 F 83 18 104/76 98 08/01/17 09:05 08/01/17 09:05 08/01/17 09:05 08/01/17 09:05 08/01/17 09:36 General appearance: Present: no acute distress, obese Results - Labs CBC & Chem 7: 07/28/17 06:30 08/01/17 08:40 Labs: Laboratory Last Values WBC 3.4 K/mm3 (4.5-11.0) L 07/28/17 06:30 RBC 4.00 M/mm3 (3.65-5.03) 07/28/17 06:30 Hgb 13.3 gm/dl (10.1-14.3) 07/28/17 06:30 Hct 42.0 % (30.3-42.9) 07/28/17 06:30 MCV 105 fl (79-97) H 07/28/17 06:30 MCH 33 pg (28-32) H 07/28/17 06:30 MCHC 32 % (30-34) 07/28/17 06:30 RDW 14.6 % (13.2-15.2) 07/28/17 06:30 Plt Count 185 K/mm3 (140-440) 07/28/17 06:30 Lymph % (Auto) 20.9 % (13.4-35.0) 07/28/17 06:30 [place] % (Auto) 11.4 % (0.0-7.3) H 07/28/17 06:30 Eos % (Auto) 3.0 % (0.0-4.3) 07/28/17 06:30 Baso % (Auto) 0.8 % (0.0-1.8) 07/28/17 06:30 Lymph # 0.7 K/mm3 (1.2-5.4) L 07/28/17 06:30 [place] # 0.4 K/mm3 (0.0-0.8) 07/28/17 06:30 Eos # 0.1 K/mm3 (0.0-0.4) 07/28/17 06:30 Baso # 0.0 K/mm3 (0.0-0.1) 07/28/17 06:30 Seg Neutrophils % 63.9 % (40.0-70.0) 07/28/17 06:30 Seg Neutrophils # 2.2 K/mm3 (1.8-7.7) 07/28/17 06:30 PT 19.5 Sec. (12.2-14.9) H 07/28/17 06:30 INR 1.55 (0.87-1.13) H 07/28/17 06:30 Sodium 138 mmol/L (137-145) 08/01/17 08:40 Potassium 4.6 mmol/L (3.6-5.0) 08/01/17 08:40 Chloride 96.6 mmol/L (98-107) L 08/01/17 08:40 Carbon Dioxide 34 mmol/L (22-30) H 08/01/17 08:40 Anion Gap 12 mmol/L 08/01/17 08:40 BUN 19 mg/dL (7-17) H 08/01/17 08:40 Creatinine 0.8 mg/dL (0.7-1.2) 08/01/17 08:40 Estimated GFR > 60 ml/min 08/01/17 08:40 BUN/Creatinine Ratio 24 % 08/01/17 08:40 Glucose 105 mg/dL (65-100) H 08/01/17 08:40 Calcium 8.0 mg/dL (8.4-10.2) L 08/01/17 08:40 Magnesium 1.90 mg/dL (1.7-2.3) 07/31/17 06:01 Total Bilirubin 0.70 mg/dL (0.1-1.2) 07/28/17 06:30 AST 12 units/L (5-40) 07/28/17 06:30 ALT 11 units/L (7-56) 07/28/17 06:30 Alkaline Phosphatase 57 units/L (35-129) 07/28/17 06:30 NT-Pro-B Natriuret Pep 3140 pg/mL (0-900) H 07/28/17 06:30 Total Protein 6.9 g/dL (6.3-8.2) 07/28/17 06:30 Albumin 3.5 g/dL (3.9-5) L 07/28/17 06:30 Albumin/Globulin Ratio 1.0 % 07/28/17 06:30 TSH 2.240 mlU/mL (0.270-4.200) 07/27/17 19:42 Free T4 1.28 ng/dL (0.76-1.46) 07/27/17 19:42
--- NOTE | 2017-08-01 16:29 | Discharge Summary ---
Providers - Providers Date of Admission: 07/27/17 18:02 Date of discharge: 08/01/17 Attending physician: EFE GODOY 07/28/17 06:24 Consult to Physician [CONS] Routine Comment: Consulting Provider: XENA BOYD Physician Instructions: Reason For Exam: chf 07/28/17 11:43 Consult to Dietitian/Nutrition [CONS] Routine Physician Instructions: Reason For Exam: Reason for Consult: Poor oral intake Primary care physician: [employer] Hospitalization Condition: Fair Disposition: DC-01 TO HOME OR SELFCARE - Discharge Diagnoses (1) HTN (hypertension) Status: Acute Qualifiers: Hypertension type: essential hypertension Qualified Code(s): I10 - Essential (primary) hypertension (2) Acute on chronic systolic (congestive) heart failure Status: Acute Core Measure Documentation - Palliative Care Palliative Care/ Comfort Measures: Not Applicable - Core Measures Any of the following diagnoses?: heart failure - Heart Failure Discharge Requirements ESTEBAN/ARB for LVSD if EF <40%: Yes Beta brice at discharge: Yes Exam - Constitutional Vitals: Temp Pulse Resp BP Pulse Ox 98.3 F 83 18 104/76 98 08/01/17 09:05 08/01/17 09:05 08/01/17 09:05 08/01/17 09:05 08/01/17 09:36 Plan Activity: advance as tolerated Diet: low fat, low cholesterol, low salt Additional Instructions: 1.Follow up with PCP in 3-5 days. 2.Follow up with Dr. Boyd, Cardiology in 1 week Follow up with: PRIMARY CARE, [Primary Care Provider] - 7 Days Prescriptions: Furosemide [Lasix TAB] 40 mg PO QDAY #30 tablet Rivaroxaban [Xarelto] 20 mg PO QDAY #30 tab
== END 2017-08-01 18:55 | disposition home or self-care (01) | DRG 291 ==
LOC: UNDOADMIN 16:35 → 4A 16:35
PROVIDERS: ADMIT Internal Medicine; ATTEND Internal Medicine
DX: I11.0 Hypertensive heart disease with heart failure (principal); J96.00 Acute respiratory failure, unspecified whether with hypoxia or hypercapnia; I47.2 Ventricular tachycardia; E78.5 Hyperlipidemia, unspecified; E66.9 Obesity, unspecified; I50.23 Acute on chronic systolic (congestive) heart failure; I42.9 Cardiomyopathy, unspecified; E83.42 Hypomagnesemia; Z68.38 Body mass index [BMI] 38.0-38.9, adult; Z79.82 Long term (current) use of aspirin; Z88.1 Allergy status to other antibiotic agents; Z86.711 Personal history of pulmonary embolism; Z79.01 Long term (current) use of anticoagulants; Z86.74 Personal history of sudden cardiac arrest; Z90.12 Acquired absence of left breast and nipple
CPT/HCPCS: 36415; 71045; 80048; 80053; 83735; 83880; 84439; 84443; 85025; 85610; 93005; 93010; 94760; A9270-GY; J1940; J2405; J3475